=== PATIENT | female | born 1955 | race American Indian/Alaskan Native ===

== ENCOUNTER 2017-05-18 18:12 | Emergency (ER) | payer MEDICAID ==
[~2017-05-18] VITALS: Ht 5200 cm; Wt 103.3 kg
[~2017-05-18 18:12] MED LIST: ALD50T PO; ALPR-624 PO; ASPI-612 PO; BUPR150T6 PO; CHOL2000 PO; CHRO1TAB7 PO; LANTUS SQ; LISI2.5T49 PO; NORCO10T PO; OXCA300T39 PO; ROSU20TA PO; SOTA80TA69 PO; ZOL50T PO; ZOLP10TA5 PO
[2017-05-18 18:19] VITALS: BP 190/106
[2017-05-18] MEDS ORDERED: DOCU-28 PO (18:37)
[2017-05-18] MEDS ORDERED: ATOR40TA3 PO (18:38)
[2017-05-18] MEDS ORDERED: LANTUS SQ (18:41)
[2017-05-18 18:48] LABS: CLARITY,URINE CLEAR (Clear); COLOR,URINE YELLOW (Yellow); GLUCOSE, URINE NEGATIVE (Neg); KETONES,URINE TRACE mg/dl (Neg); LEUKOCYTE ESTERASE ,URINE NEGATIVE (Neg); NITRITES, URINE NEGATIVE (Neg); OCCULT BLOOD,URINE SMALL (Neg); PROTEIN,URINE 100 mg/dl (Neg); UROBILINOGEN,URINE 0.2 E.U/dL (0.2-1.0)
[2017-05-18 18:52] LABS: UA COLLECTION TYPE CLN CATCH MIDSTREAM
[2017-05-18 18:56] LABS: BACTERIA,URINE NONE SEEN /HPF (Neg); RBC,URINE 0-2 /HPF (0-2); SQUAMOUS EPITHELIAL CELL,UR FEW /LPF (FEW); WBC,URINE NONE SEEN /HPF (0-4)
[2017-05-18 19:10] LABS: BASOPHILS # (AUTO) 0.1 X10'3 (0-0.2); BASOPHILS % (AUTO) 0.6 % (0-1); EOSINOPHILS # (AUTO) 0.3 X10'3 (0-0.9); EOSINOPHILS % (AUTO) 2.8 % (0-6); HEMATOCRIT 41.9 % (35.0-45.0); HEMOGLOBIN 14.2 g/dl (12.0-16.0); LYMPHOCYTES % (AUTO) 22.1 % (21-51); MEAN CORPUSCULAR HEMOGLOBIN 28.5 PG (27.0-31.0); MEAN CORPUSCULAR HGB CONC 33.9 % (33.0-36.5); MEAN CORPUSCULAR VOLUME 83.8 FL (78-98); MEAN PLATELET VOLUME 9.5 FL (7.4-10.4); MONOCYTES # (AUTO) 0.7 X10'3 (0-0.9); MONOCYTES % (AUTO) 7.5 % (2-12); PLATELET COUNT 276 X10'3 (140-440); RED CELL DISTRIBUTION WIDTH 12.9 % (11.5-14.5); WHITE BLOOD COUNT 8.9 X10'3 (4.5-11.0)
[2017-05-18 19:25] LABS: ALANINE AMINOTRANSFERASE 33 U/L (12-78); ALBUMIN 3.8 G/DL (3.4-5.0); ALBUMIN/GLOBULIN RATIO 0.9 (1.1-1.5); ALKALINE PHOSPHATASE 77 IU/L (46-116); ANION GAP 13 (8-16); ASPARTATE AMINO TRANSFERASE 22 U/L (10-37); BILIRUBIN,TOTAL 0.6 MG/DL (0.1-1.0); BLOOD UREA NITROGEN 11 MG/DL (7-18); BUN/CREATININE RATIO 12.6 (6.6-38.0); CALCIUM 9.2 MG/DL (8.5-10.1); CHLORIDE 100 MMOL/L (99-107); CREATININE 0.87 MG/DL (0.40-0.90); GLUCOSE 157 MG/DL (70-104); POTASSIUM 3.7 MMOL/L (3.5-5.1); SODIUM 137 MMOL/L (135-145); TOTAL CARBON DIOXIDE 23.9 MMOL/L (24-32); TOTAL PROTEIN 8.1 G/DL (6.4-8.2); eGFR 66 ML/MIN
== END 2017-05-18 19:38 | disposition home or self-care (01) ==
LOC: ER 18:13
DX: F31.9 Bipolar disorder, unspecified (principal); F41.9 Anxiety disorder, unspecified; E11.9 Type 2 diabetes mellitus without complications; G89.29 Other chronic pain; I48.91 Unspecified atrial fibrillation; Z79.82 Long term (current) use of aspirin; Z79.4 Long term (current) use of insulin; Z79.899 Other long term (current) drug therapy
CPT/HCPCS: 36415; 80053; 81001; 82948; 85025; 99284

== ENCOUNTER 2019-01-03 20:48 | Emergency (ER) | payer MEDICAID ==
[~2019-01-03 20:48] MED LIST changes: +ATOR40TA7 PO; -CHRO1TAB7 PO; +DOCU-28 PO; -ROSU20TA PO; +ROSU20TA2 PO; -SOTA80TA69 PO; +SOTA80TA73 PO; -ZOL50T PO
--- NOTE | 2019-01-03 20:57 | NUR ---
PT WANTED BGL CHECKED DUE TO HER CONTINUOUS MONITOR READING LOW, PT BGL 116, PT REFUSING FURTHER ASSESSMENT AND TREATMENT. PT REFUSED TO BE SEEN BY MEDICAL PROVIDER. DOES NOT WISH TO PURSUE EMERGENCY MEDICAL CARE. PT INFORMED OF THE RISKS OF NOT BEEING SEEN BY A PROVIDER BUT CONTINUED TO REFUSE. PT WALKED OUT OF ED. ED MD AWARE OF PATIENT AND NO FURTHER CONTACT IS NECESSARY.
== END 2019-01-03 20:59 | disposition left against medical advice (07) ==
LOC: ER 20:49
DX: E16.2 Hypoglycemia, unspecified (principal); Z53.21 Procedure and treatment not carried out due to patient leaving prior to being seen by health care provider
CPT/HCPCS: 82948

== ENCOUNTER 2019-12-08 21:55 | Emergency (ER) | payer MEDICAID ==
[~2019-12-08] VITALS: Ht 157.5 cm; Wt 90.9 kg
[2019-12-08] MEDS ORDERED: cephalexin 500mg capsule PO ONE (23:10)
[2019-12-08] MEDS ORDERED: sulfamethoxazole/trimethoprim DS (800/160mg) tablet PO ONE (23:10)
[2019-12-08] MEDS ORDERED: LIDOcaine 1% W/epiNEPHrine 1:200,000 10ml vial IJ ONE (23:10)
[2019-12-08] MEDS ORDERED: CEPH500C5 PO (23:48)
[2019-12-08] MEDS ORDERED: SULF1TAB49 PO (23:48)
[2019-12-08 23:54] VITALS: BP 106/60
== END 2019-12-08 23:55 | disposition home or self-care (01) ==
LOC: ER 21:56
DX: L02.511 Cutaneous abscess of right hand (principal); M79.641 Pain in right hand; M79.89 Other specified soft tissue disorders; I48.91 Unspecified atrial fibrillation; E11.9 Type 2 diabetes mellitus without complications; G89.29 Other chronic pain; F41.9 Anxiety disorder, unspecified; F31.9 Bipolar disorder, unspecified; Z86.19 Personal history of other infectious and parasitic diseases; Z79.82 Long term (current) use of aspirin; Z79.4 Long term (current) use of insulin; Z79.2 Long term (current) use of antibiotics; Z79.899 Other long term (current) drug therapy
CPT/HCPCS: 10060; 99284

== ENCOUNTER 2019-12-11 12:31 | Emergency (ER) | payer MEDICAID ==
[~2019-12-11] VITALS: Ht 172.7 cm; Wt 110.0 kg
[~2019-12-11 12:31] MED LIST changes: +CEPH500C5 PO; -SOTA80TA73 PO; +SULF1TAB49 PO
[2019-12-11 12:35] VITALS: BP 195/117
== END 2019-12-11 13:14 | disposition left against medical advice (07) ==
LOC: ER 12:31
DX: L02.511 Cutaneous abscess of right hand (principal); Z53.21 Procedure and treatment not carried out due to patient leaving prior to being seen by health care provider

== ENCOUNTER 2019-12-11 14:20 | Emergency (ER) | payer MEDICAID ==
[~2019-12-11] VITALS: Ht 172.7 cm; Wt 100.0 kg
[~2019-12-11 14:20] MED LIST changes: +LIDOcaine 1% 30ml preserv. free vial ONE
[2019-12-11 14:26] VITALS: BP 183/103
--- NOTE | 2019-12-11 15:16 | NUR ---
pt seen and dc'd by provider
== END 2019-12-11 15:15 | disposition home or self-care (01) ==
LOC: ER 14:20
DX: L02.512 Cutaneous abscess of left hand (principal); I48.91 Unspecified atrial fibrillation; G89.29 Other chronic pain; E11.9 Type 2 diabetes mellitus without complications; F41.9 Anxiety disorder, unspecified; F31.9 Bipolar disorder, unspecified; G47.30 Sleep apnea, unspecified; Z86.19 Personal history of other infectious and parasitic diseases; Z79.82 Long term (current) use of aspirin; Z79.4 Long term (current) use of insulin; Z79.899 Other long term (current) drug therapy
CPT/HCPCS: 10060; 99282; J2001

== ENCOUNTER 2020-05-26 12:51 | Emergency (ER) | payer MEDICAID ==
[~2020-05-26] VITALS: Ht 157.5 cm; Wt 86.4 kg
[~2020-05-26 12:51] MED LIST changes: +BUPR150T22 PO; -BUPR150T6 PO; -CEPH500C5 PO; -LIDOcaine 1% 30ml preserv. free vial ONE; -SULF1TAB49 PO
[2020-05-26 13:05] VITALS: BP 123/72
[2020-05-26] MEDS ORDERED: mupirocin 2% ointment 22GM TP ONE (13:15)
== END 2020-05-26 13:46 | disposition home or self-care (01) ==
LOC: ER 12:52
DX: S51.802A Unspecified open wound of left forearm, initial encounter (principal); S51.801A Unspecified open wound of right forearm, initial encounter; L98.9 Disorder of the skin and subcutaneous tissue, unspecified; G47.30 Sleep apnea, unspecified; E11.9 Type 2 diabetes mellitus without complications; G89.29 Other chronic pain; F41.9 Anxiety disorder, unspecified; F31.9 Bipolar disorder, unspecified; I48.91 Unspecified atrial fibrillation; Z86.19 Personal history of other infectious and parasitic diseases; Z79.82 Long term (current) use of aspirin; Z79.4 Long term (current) use of insulin; Z79.899 Other long term (current) drug therapy; X58.XXXA Exposure to other specified factors, initial encounter; Y93.89 Activity, other specified; Y92.89 Other specified places as the place of occurrence of the external cause; Y99.8 Other external cause status
CPT/HCPCS: 99283

== ENCOUNTER 2020-09-15 16:12 | Inpatient (IN) | payer MEDICAID ==
[~2020-09-15] VITALS: Ht 160 cm; Wt 76.0 kg
--- NOTE | 2020-09-15 16:46 | NUR ---
PT TO ROOM, ASSUMED CARE.
[2020-09-15] MEDS ORDERED: normal saline 1000ML IV soln IVB ONE ×2 (16:50→18:25)
[2020-09-15 17:03] LABS: BASOPHILS % (AUTO) 0.4 % (0-1); EOSINOPHILS # (AUTO) 0.2 X10'3 (0-0.9); EOSINOPHILS % (AUTO) 1.5 % (0-6); HEMOGLOBIN 16.2 g/dl (12.0-16.0); LYMPHOCYTES # (AUTO) 2.7 X10'3 (1.1-4.8); LYMPHOCYTES % (AUTO) 26.4 % (21-51); MEAN CORPUSCULAR HEMOGLOBIN 28.4 PG (27.0-31.0); MEAN CORPUSCULAR HGB CONC 33.6 g/dL (33.0-36.5); MEAN CORPUSCULAR VOLUME 84.6 FL (78-98); MEAN PLATELET VOLUME 10.4 FL (7.4-10.4); MONOCYTES # (AUTO) 1.3 X10'3 (0-0.9); MONOCYTES % (AUTO) 12.3 % (2-12); NEUTROPHILS # (AUTO) 6.2 X10'3 (1.8-7.7); NEUTROPHILS % (AUTO) 59.4 % (42-75); PLATELET COUNT 347 X10'3 (140-440); RED BLOOD COUNT 5.68 X10'6 (4.20-5.60); RED CELL DISTRIBUTION WIDTH 12.7 % (11.5-14.5); WHITE BLOOD COUNT 10.4 X10'3 (4.5-11.0)
[2020-09-15 17:19] LABS: ALANINE AMINOTRANSFERASE 22 U/L (12-78); ALBUMIN 3.5 G/DL (3.4-5.0); ALBUMIN/GLOBULIN RATIO 0.7 (1.1-1.5); ALKALINE PHOSPHATASE 106 IU/L (46-116); ANION GAP 12 (8-16); ASPARTATE AMINO TRANSFERASE 20 U/L (10-37); BILIRUBIN,TOTAL 0.5 MG/DL (0.1-1.0); BLOOD UREA NITROGEN 36 MG/DL (7-18); BUN/CREATININE RATIO 24.3 (6.6-38.0); CALCIUM 10.4 MG/DL (8.5-10.1); CHLORIDE 88 MMOL/L (99-107); CREATININE 1.48 MG/DL (0.40-0.90); POTASSIUM 4.6 MMOL/L (3.5-5.1); SODIUM 124 MMOL/L (135-145); TOTAL CARBON DIOXIDE 23.8 MMOL/L (24-32); TOTAL PROTEIN 8.5 G/DL (6.4-8.2); eGFR 36 ML/MIN
--- NOTE | 2020-09-15 17:22 | NUR ---
placed pt on monitoring coordinator.
[2020-09-15 17:23] LABS: GLUCOSE 698 MG/DL (70-104)
[2020-09-15 18:01] LABS: ABG OXYGEN SATURATION 95.1 % (94-97); ABG PCO2 (T) 37.1 mmHg (32.0-45.0); ABG PO2 (T) 70.8 mmHg (75.0-100.0); ALLEN'S TEST POSITIVE; FCOHb 0.8 % (0.0-3.9); FMetHb 0.2 % (0.0-1.5); FO2Hb 94.1 % (94-97); PATIENT TEMPERATURE 35.8; TOTAL HEMOGLOBIN 14.9 G/dl (12.0-16.0)
[2020-09-15] MEDS ORDERED: insulin regular, human 10 units/0.1 ml syringe SQ ONE (18:50)
--- NOTE | 2020-09-15 20:23 | NUR ---
BLOOD SUGAR RECHECKED, 469
[2020-09-15 21:17] LABS: CLARITY,URINE CLEAR (Clear); COLOR,URINE YELLOW (Yellow); GLUCOSE, URINE >=1000 mg/dl (Neg); KETONES,URINE NEGATIVE (Neg); LEUKOCYTE ESTERASE ,URINE NEGATIVE (Neg); NITRITES, URINE NEGATIVE (Neg); OCCULT BLOOD,URINE NEGATIVE (Neg); PH,URINE 5.5 (4.8-8.0); PROTEIN,URINE NEGATIVE (Neg); UROBILINOGEN,URINE 0.2 E.U/dL (0.2-1.0)
[2020-09-15 21:18] LABS: UA COLLECTION TYPE CLN CATCH MIDSTREAM
[2020-09-15 21:33] LABS: BACTERIA,URINE NONE SEEN /HPF (Neg); MUCUS STRANDS NONE SEEN /LPF (Neg); RBC,URINE 0-2 /HPF (0-2); SQUAMOUS EPITHELIAL CELL,UR FEW /LPF (FEW); WBC,URINE 0-4 /HPF (0-4)
[2020-09-15] MEDS ORDERED: potassium Cl 20 mEq SR tablet PO PRN ×2 (23:55)
[2020-09-15] MEDS ORDERED: dextrose 50%-water 50ml dispensing syringe IV PRN ×2 (23:55)
[2020-09-15] MEDS ORDERED: morphine 2 MG/ML inj. syringe IV PRN (23:55)
[2020-09-15] MEDS ORDERED: glucagon, human recombinant 1mg kit SUBCUT PRN (23:55)
[2020-09-15] MEDS ORDERED: acetaminophen 325mg tablet PO PRN ×2 (23:55)
[2020-09-15] MEDS ORDERED: ondansetron/PF 4mg/2ml inj IV PRN (23:55)
[2020-09-15] MEDS ORDERED: magnesium 2GM in 50ml NS 50 ML IV PRN (23:55)
[2020-09-15] MEDS ORDERED: MESSAGE TO PHARMACY PO ONE (23:55)
[2020-09-15] MEDS ORDERED: magnesium 4gm in 100ml NS 100 ML IV PRN (23:55)
[2020-09-15] MEDS ORDERED: magnesium Cl slow-release 64mg tablet PO PRN (23:55)
[2020-09-15] MEDS ORDERED: mag hydrox/Alum hydrox/simeth 30ml oral suspension PO PRN (23:55)
[2020-09-15] MEDS ORDERED: dextrose ORAL solution 15 GM/59 ML bottle PO PRN ×2 (23:55)
[2020-09-15] MEDS ORDERED: magnesium hydroxide 30ml (MOM) UD suspension PO PRN (23:55)
[2020-09-15] MEDS ORDERED: potassium Cl 40MEQ/1/2NS 520ml 520 ML IV PRN ×2 (23:55)
[2020-09-16] MEDS: normal saline 1000ml 1,000 ML IV SCH ×3 (00:13→21:47)
[2020-09-16] MEDS ORDERED: SOTA80TA73 PO (00:49)
[2020-09-16] MEDS ORDERED: DULA0.75 SQ (00:49)
[2020-09-16] MEDS ORDERED: non-formulary drug (Rosuvastatin Calcium* (Crestor*) 1 TAB) PO SCH (08:00)
[2020-09-16] MEDS: K and/or MAG REPLACEMENT MC SCH ×2 (08:00→20:00)
[2020-09-16] MEDS ORDERED: buPROPion SR 150mg tablet PO SCH ×2 (08:00→21:00)
[2020-09-16 08:14] LABS: BASOPHILS # (AUTO) 0.1 X10'3 (0-0.2); BASOPHILS % (AUTO) 0.6 % (0-1); EOSINOPHILS # (AUTO) 0.3 X10'3 (0-0.9); EOSINOPHILS % (AUTO) 3.2 % (0-6); HEMATOCRIT 41.2 % (35.0-45.0); HEMOGLOBIN 14.2 g/dl (12.0-16.0); LYMPHOCYTES # (AUTO) 3.1 X10'3 (1.1-4.8); LYMPHOCYTES % (AUTO) 37.6 % (21-51); MEAN CORPUSCULAR HEMOGLOBIN 28.8 PG (27.0-31.0); MEAN CORPUSCULAR HGB CONC 34.4 g/dL (33.0-36.5); MEAN CORPUSCULAR VOLUME 83.6 FL (78-98); MEAN PLATELET VOLUME 10.1 FL (7.4-10.4); MONOCYTES # (AUTO) 0.8 X10'3 (0-0.9); MONOCYTES % (AUTO) 10.2 % (2-12); NEUTROPHILS % (AUTO) 48.4 % (42-75); PLATELET COUNT 282 X10'3 (140-440); RED BLOOD COUNT 4.93 X10'6 (4.20-5.60); RED CELL DISTRIBUTION WIDTH 12.7 % (11.5-14.5); WHITE BLOOD COUNT 8.3 X10'3 (4.5-11.0)
[2020-09-16 08:34] LABS: ALANINE AMINOTRANSFERASE 24 U/L (12-78); ALBUMIN 2.8 G/DL (3.4-5.0); ALBUMIN/GLOBULIN RATIO 0.7 (1.1-1.5); ALKALINE PHOSPHATASE 78 IU/L (46-116); ANION GAP 8 (8-16); ASPARTATE AMINO TRANSFERASE 16 U/L (10-37); BILIRUBIN,TOTAL 0.4 MG/DL (0.1-1.0); BLOOD UREA NITROGEN 25 MG/DL (7-18); BUN/CREATININE RATIO 26.6 (6.6-38.0); CALCIUM 8.8 MG/DL (8.5-10.1); CHLORIDE 103 MMOL/L (99-107); CREATININE 0.94 MG/DL (0.40-0.90); GLUCOSE 211 MG/DL (70-104); MAGNESIUM 1.6 MG/DL (1.5-2.4); POTASSIUM 3.6 MMOL/L (3.5-5.1); SODIUM 138 MMOL/L (135-145); TOTAL CARBON DIOXIDE 26.7 MMOL/L (24-32); TOTAL PROTEIN 6.9 G/DL (6.4-8.2); eGFR 60 ML/MIN
[2020-09-16] MEDS: heparin, porcine 5000 units/ml vial SQ SCH ×2 (08:40→22:01)
[2020-09-16] MEDS: lisinopril 2.5mg tablet PO SCH (08:41)
[2020-09-16] MEDS: oxcarbazepine 150mg tablet PO SCH ×2 (08:41→22:03)
[2020-09-16] MEDS: atorvastatin 20mg tablet PO SCH (08:41)
[2020-09-16] MEDS: sotalol 80mg tablet PO SCH ×2 (08:41→22:20)
[2020-09-16] MEDS: aspirin 81mg tablet.DR PO SCH (08:41)
[2020-09-16] MEDS: spironolactone 50 MG tablet PO SCH ×2 (08:41→22:03)
[2020-09-16] MEDS ORDERED: nitroGLYCERIN 0.4mg SUBLingual tab SL PRN (13:35)
[2020-09-16] MEDS ORDERED: regadenoson 0.4mg/5ml syringe IV ONE (13:35)
[2020-09-16] MEDS ORDERED: metoprolol tartrate 1mg/ml inj IV PRN (13:35)
[2020-09-16] MEDS ORDERED: aminophylline 250mg/10ml inj. IV PRN (13:35)
[2020-09-16] MEDS: insulin Lispro (HumaLOG) vial - multi-dose SQ SCH ×2 (14:34→22:11)
[2020-09-16] MEDS ORDERED: ondansetron 4mg rapidly disintigrating tab PO PRN (14:35)
--- NOTE | 2020-09-16 20:55 | NUR ---
Patient in room ED 2. I have received report from Medical Voucher Clerk and had the opportunity to ask questions and will assume patient care upon arrival to room [facility]. Addendum: 09/16/20 at 2054 by Josseline Merida RN Amended: Links added.
[2020-09-16] MEDS ORDERED: buproprion 150mg XL (24-hour) tablet PO SCH (21:00)
[2020-09-16] MEDS: temazepam 15mg capsule PO PRN (21:59)
[2020-09-16 22:00] VITALS: BP 107/69
[2020-09-16] MEDS: ALPRAZolam 0.5mg tablet PO PRN (22:00)
[2020-09-16] MEDS: insulin glargine (Lantus) pen - multi-dose SQ SCH (22:10)
[2020-09-17] VITALS (10 sets, daily range): BP systolic 104–123; BP diastolic 38–64
[2020-09-17] MEDS: temazepam 15mg capsule PO PRN (00:37)
--- NOTE | 2020-09-17 01:00 | NUR ---
TOOK SECOND SLEEPER THEN WENT TO PHARMACY TO [employer] [facility] PT[facility].
[2020-09-17] MEDS: BUPROPRION 150 MG PO SCH ×2 (01:46→20:31)
[2020-09-17 02:49] LABS: HEMOGLOBIN A1C 12.5 % (4.5-6.2)
--- NOTE | 2020-09-17 03:28 | NUR ---
PT RESTING WITHOUT CHANGES.
--- NOTE | 2020-09-17 05:03 | NUR ---
PT RESTING EYES CLOSED WITHOUT CHANGES AT THIS TIME.
[2020-09-17] MEDS ORDERED: aminophylline 250mg/10ml inj. IV PRN (06:00)
[2020-09-17] MEDS ORDERED: metoprolol tartrate 1mg/ml inj IV PRN (06:00)
[2020-09-17] MEDS ORDERED: regadenoson 0.4mg/5ml syringe IV ONE (06:00)
--- NOTE | 2020-09-17 06:41 | NUR ---
Problems reprioritized. Patient report given, questions answered & plan of care reviewed with JOSEFINA EUBANKS. Addendum: 09/17/20 at 0642 by Josseline Merida RN Amended: Links added.
--- NOTE | 2020-09-17 06:53 | NUR ---
Patient in room ORTHO 4011B. I have received report from RAIMUNDO NEGRETE and had the opportunity to ask questions and assume patient care.
[2020-09-17] MEDS: K and/or MAG REPLACEMENT MC SCH ×2 (08:00→20:00)
[2020-09-17 08:02] LABS: BASOPHILS # (AUTO) 0.1 X10'3 (0-0.2); EOSINOPHILS # (AUTO) 0.2 X10'3 (0-0.9); EOSINOPHILS % (AUTO) 2.8 % (0-6); HEMATOCRIT 40.6 % (35.0-45.0); HEMOGLOBIN 13.6 g/dl (12.0-16.0); LYMPHOCYTES # (AUTO) 2.5 X10'3 (1.1-4.8); LYMPHOCYTES % (AUTO) 40.4 % (21-51); MEAN CORPUSCULAR HEMOGLOBIN 28.3 PG (27.0-31.0); MEAN CORPUSCULAR HGB CONC 33.4 g/dL (33.0-36.5); MEAN CORPUSCULAR VOLUME 84.6 FL (78-98); MEAN PLATELET VOLUME 10.2 FL (7.4-10.4); MONOCYTES # (AUTO) 0.6 X10'3 (0-0.9); MONOCYTES % (AUTO) 9.6 % (2-12); NEUTROPHILS # (AUTO) 2.8 X10'3 (1.8-7.7); NEUTROPHILS % (AUTO) 46.2 % (42-75); PLATELET COUNT 221 X10'3 (140-440); RED BLOOD COUNT 4.79 X10'6 (4.20-5.60); RED CELL DISTRIBUTION WIDTH 12.7 % (11.5-14.5); WHITE BLOOD COUNT 6.1 X10'3 (4.5-11.0)
[2020-09-17] MEDS: lisinopril 2.5mg tablet PO SCH (08:12)
[2020-09-17] MEDS: aspirin 81mg tablet.DR PO SCH (08:13)
[2020-09-17] MEDS: atorvastatin 20mg tablet PO SCH (08:13)
[2020-09-17] MEDS: oxcarbazepine 150mg tablet PO SCH ×2 (08:14→20:30)
[2020-09-17] MEDS: sotalol 80mg tablet PO SCH ×2 (08:15→20:31)
[2020-09-17] MEDS: spironolactone 50 MG tablet PO SCH ×2 (08:15→20:31)
[2020-09-17] MEDS: heparin, porcine 5000 units/ml vial SQ SCH ×2 (08:15→20:32)
[2020-09-17 08:18] LABS: ALANINE AMINOTRANSFERASE 25 U/L (12-78); ALBUMIN 2.5 G/DL (3.4-5.0); ALBUMIN/GLOBULIN RATIO 0.7 (1.1-1.5); ALKALINE PHOSPHATASE 71 IU/L (46-116); ANION GAP 9 (8-16); ASPARTATE AMINO TRANSFERASE 19 U/L (10-37); BILIRUBIN,TOTAL 0.3 MG/DL (0.1-1.0); BLOOD UREA NITROGEN 23 MG/DL (7-18); BUN/CREATININE RATIO 22.1 (6.6-38.0); CALCIUM 8.3 MG/DL (8.5-10.1); CHLORIDE 106 MMOL/L (99-107); CREATININE 1.04 MG/DL (0.40-0.90); GLUCOSE 293 MG/DL (70-104); MAGNESIUM 1.6 MG/DL (1.5-2.4); POTASSIUM 3.7 MMOL/L (3.5-5.1); SODIUM 138 MMOL/L (135-145); TOTAL CARBON DIOXIDE 23.3 MMOL/L (24-32); TOTAL PROTEIN 6.3 G/DL (6.4-8.2); eGFR 53 ML/MIN
[2020-09-17] MEDS: insulin Lispro (HumaLOG) vial - multi-dose SQ SCH ×3 (08:23→19:08)
[2020-09-17] MEDS: ALPRAZolam 0.5mg tablet PO PRN ×2 (08:29→21:50)
[2020-09-17] MEDS: HYDROcodone/acetaminophen 5mg/325mg tablet PO PRN ×2 (08:30→21:51)
[2020-09-17] MEDS: normal saline 1000ml 1,000 ML IV SCH ×3 (09:48→22:57)
--- NOTE | 2020-09-17 12:20 | NUR ---
DM/Malnutrition Consults "pt DM meth user, needs teaching": Pt admit DX hyperosmolar hyperglycemia GLU 698, hyponatremia r/t elevated GLU, afib, and bipolar d/o per EMR. Hx DM A1C 12.5 this admit; home Rx Lantus 50 units HS and weekly Trulicity and goes to [facility] for primary care per EMR. No tox screen done this admit though pt does admit to last meth use [address] RD attempted to visit pt though pt not in room; written DM ed w/ RD contact information left at bedside. Pt would benefit from f/u DM ed review this admit. Pt has normal strength, no edema/wounds, appears WD/WN per ER note, and unsure of wt loss per RN Malnutrition screen. PO meals pending as pt NPO this AM. At this time pt lacks minimum two malnutrition criteria. LBM 09/14. Will monitor for PO trends, ONS needs, and further DM ed needs this admit. Rec: 1. continue carb controlled diet 2. monitor for ONS needs pending PO hx 3. routine bowel care 4. weekly wts 5. DM ed reinforcement this admit Addendum: 09/17/20 at [address] Amended: Links added.
--- NOTE | 2020-09-17 18:50 | NUR ---
Problems reprioritized. Patient report given, questions answered & plan of care reviewed with CARLOS GONZALEZ RN.
--- NOTE | 2020-09-17 18:51 | NUR ---
Patient in room ORTHO 4011. I have received report from JOSEFINA EUBANKS and had the opportunity to ask questions and assume patient care.
[2020-09-17] MEDS: insulin glargine (Lantus) pen - multi-dose SQ SCH (21:56)
[2020-09-18] VITALS: BP 137/66
[2020-09-18 06:00] VITALS: BP 137/70
--- NOTE | 2020-09-18 06:08 | NUR ---
Problems reprioritized. Patient report given, questions answered & plan of care reviewed with MARY BETH EUBANKS.
[2020-09-18 06:45] LABS: BASOPHILS % (AUTO) 0.6 % (0-1); EOSINOPHILS # (AUTO) 0.2 X10'3 (0-0.9); EOSINOPHILS % (AUTO) 4.1 % (0-6); HEMATOCRIT 40.6 % (35.0-45.0); HEMOGLOBIN 13.7 g/dl (12.0-16.0); LYMPHOCYTES # (AUTO) 2.2 X10'3 (1.1-4.8); LYMPHOCYTES % (AUTO) 39.5 % (21-51); MEAN CORPUSCULAR HEMOGLOBIN 28.6 PG (27.0-31.0); MEAN CORPUSCULAR HGB CONC 33.8 g/dL (33.0-36.5); MEAN CORPUSCULAR VOLUME 84.7 FL (78-98); MEAN PLATELET VOLUME 10.2 FL (7.4-10.4); MONOCYTES # (AUTO) 0.6 X10'3 (0-0.9); MONOCYTES % (AUTO) 11.7 % (2-12); NEUTROPHILS # (AUTO) 2.4 X10'3 (1.8-7.7); NEUTROPHILS % (AUTO) 44.1 % (42-75); PLATELET COUNT 204 X10'3 (140-440); RED BLOOD COUNT 4.79 X10'6 (4.20-5.60); RED CELL DISTRIBUTION WIDTH 12.8 % (11.5-14.5); WHITE BLOOD COUNT 5.5 X10'3 (4.5-11.0)
[2020-09-18] MEDS: heparin, porcine 5000 units/ml vial SQ SCH (07:10)
[2020-09-18] MEDS: atorvastatin 20mg tablet PO SCH (07:11)
[2020-09-18] MEDS: lisinopril 2.5mg tablet PO SCH (07:11)
[2020-09-18] MEDS: aspirin 81mg tablet.DR PO SCH (07:11)
[2020-09-18] MEDS: spironolactone 50 MG tablet PO SCH (07:11)
[2020-09-18] MEDS: sotalol 80mg tablet PO SCH (07:12)
[2020-09-18] MEDS: oxcarbazepine 150mg tablet PO SCH (07:12)
[2020-09-18] MEDS: K and/or MAG REPLACEMENT MC SCH (07:16)
[2020-09-18 08:05] LABS: ALANINE AMINOTRANSFERASE 26 U/L (12-78); ALBUMIN 2.7 G/DL (3.4-5.0); ALBUMIN/GLOBULIN RATIO 0.7 (1.1-1.5); ALKALINE PHOSPHATASE 69 IU/L (46-116); ANION GAP 12 (8-16); ASPARTATE AMINO TRANSFERASE 19 U/L (10-37); BILIRUBIN,TOTAL 0.3 MG/DL (0.1-1.0); BLOOD UREA NITROGEN 13 MG/DL (7-18); BUN/CREATININE RATIO 16.3 (6.6-38.0); CALCIUM 8.5 MG/DL (8.5-10.1); CHLORIDE 109 MMOL/L (99-107); GLUCOSE 216 MG/DL (70-104); MAGNESIUM 1.5 MG/DL (1.5-2.4); POTASSIUM 3.8 MMOL/L (3.5-5.1); SODIUM 143 MMOL/L (135-145); TOTAL CARBON DIOXIDE 21.6 MMOL/L (24-32); TOTAL PROTEIN 6.6 G/DL (6.4-8.2); eGFR 72 ML/MIN
[2020-09-18] MEDS: insulin Lispro (HumaLOG) vial - multi-dose SQ SCH ×2 (09:24→13:15)
[2020-09-18 10:00] VITALS: BP 139/75
[2020-09-18] MEDS ORDERED: iohexol 350MG/ML 100ml bottle IV ONE (10:40)
--- NOTE | 2020-09-18 11:46 | NUR ---
F/u 09/18: RD attempted to visit pt at bedside for DM f/u ed review but pt not present. Will attempt further visits for DM ed review this admit. Addendum: 09/18/20 at [address] Amended: Links added.
[2020-09-18] MEDS: normal saline 1000ml 1,000 ML IV SCH (12:02)
--- NOTE | 2020-09-18 13:53 | NUR ---
DISCHARGE TEACHING DONE. COPY OF SIGNED TEACHING IN CHART. IV AND TELE DISCONTINUED. ALL BELONGINGS WITH PT. PT TAKEN DOWN TO LOBBY BY WHEELCHAIR BY PRIVATE VEHICLE.
== END 2020-09-18 11:35 | disposition home health service (06) | DRG 420 ==
LOC: ER 16:12 → OBSVTOIN 23:55 → ED HOLD 23:55 → ORTHO 4S 09-16 21:10
PROVIDERS: ADMIT Internal Medicine; ATTEND Family Medicine
PROC: 4A02XM4 Measurement of Cardiac Total Activity, External Approach (ICD-10-PCS; principal; 2020-09-17)
PROC: 3E073KZ Introduction of Other Diagnostic Substance into Coronary Artery, Percutaneous Approach (ICD-10-PCS; 2020-09-17)
PROC: B32T1ZZ Computerized Tomography (CT Scan) of Left Pulmonary Artery using Low Osmolar Contrast (ICD-10-PCS; 2020-09-18)
PROC: B3201ZZ Computerized Tomography (CT Scan) of Thoracic Aorta using Low Osmolar Contrast (ICD-10-PCS; 2020-09-18)
PROC: B32S1ZZ Computerized Tomography (CT Scan) of Right Pulmonary Artery using Low Osmolar Contrast (ICD-10-PCS; 2020-09-18)
DX: E11.65 Type 2 diabetes mellitus with hyperglycemia (principal); I21.A1 Myocardial infarction type 2; E11.22 Type 2 diabetes mellitus with diabetic chronic kidney disease; E87.1 Hypo-osmolality and hyponatremia; E86.0 Dehydration; B19.20 Unspecified viral hepatitis C without hepatic coma; I48.0 Paroxysmal atrial fibrillation; E66.9 Obesity, unspecified; E78.5 Hyperlipidemia, unspecified; G47.33 Obstructive sleep apnea (adult) (pediatric); G89.29 Other chronic pain; F15.10 Other stimulant abuse, uncomplicated; F31.9 Bipolar disorder, unspecified; F41.9 Anxiety disorder, unspecified; I12.9 Hypertensive chronic kidney disease with stage 1 through stage 4 chronic kidney disease, or unspecified chronic kidney disease; I25.10 Atherosclerotic heart disease of native coronary artery without angina pectoris; N18.9 Chronic kidney disease, unspecified; Z80.1 Family history of malignant neoplasm of trachea, bronchus and lung; Z87.891 Personal history of nicotine dependence; Z68.29 Body mass index [BMI] 29.0-29.9, adult; Z79.899 Other long term (current) drug therapy; Z79.82 Long term (current) use of aspirin; Z98.891 History of uterine scar from previous surgery; Z98.51 Tubal ligation status; Z71.51 Drug abuse counseling and surveillance of drug abuser; Z91.14 Patient's other noncompliance with medication regimen
CPT/HCPCS: 36415; 36600; 71045; 71275; 78452; 80053; 81001; 82803; 82948; 83036; 83735; 83880; 83930; 84484; 85018; 85025; 87081; 93005; 93017; 93306; 96360; 96361; 96372; 97116; 97161; 97530; 99285; A9500; G0378; J1644; J1815; J2785; J7030; Q9967

== ENCOUNTER 2021-05-05 16:56 | Inpatient (IN) | payer MEDICARE, MEDICAID ==
[~2021-05-05] VITALS: Ht 157.5 cm; Wt 78.2 kg
[~2021-05-05 16:56] MED LIST changes: +DULA0.75 SQ; -ROSU20TA2 PO; +SOTA80TA73 PO
[2021-05-05 18:01] LABS: BASOPHILS % (AUTO) 0.2 % (0-1); EOSINOPHILS % (AUTO) 0.3 % (0-6); HEMATOCRIT 42.1 % (35.0-45.0); HEMOGLOBIN 14.1 g/dl (12.0-16.0); LYMPHOCYTES # (AUTO) 1.1 X10'3 (1.1-4.8); MEAN CORPUSCULAR HEMOGLOBIN 28.3 PG (27.0-31.0); MEAN CORPUSCULAR HGB CONC 33.5 g/dL (33.0-36.5); MEAN CORPUSCULAR VOLUME 84.5 FL (78-98); MONOCYTES # (AUTO) 1.2 X10'3 (0-0.9); NEUTROPHILS # (AUTO) 9.5 X10'3 (1.8-7.7); NEUTROPHILS % (AUTO) 80.5 % (42-75); PLATELET COUNT 256 X10'3 (140-440); RED BLOOD COUNT 4.98 X10'6 (4.20-5.60); RED CELL DISTRIBUTION WIDTH 13.4 % (11.5-14.5); WHITE BLOOD COUNT 11.8 X10'3 (4.5-11.0)
[2021-05-05 18:20] LABS: ALANINE AMINOTRANSFERASE 25 U/L (12-78); ALBUMIN 2.9 G/DL (3.4-5.0); ALBUMIN/GLOBULIN RATIO 0.6 (1.1-1.5); ALKALINE PHOSPHATASE 79 IU/L (46-116); ANION GAP 6 (8-16); ASPARTATE AMINO TRANSFERASE 16 U/L (10-37); BILIRUBIN,TOTAL 0.3 MG/DL (0.1-1.0); BLOOD UREA NITROGEN 23 MG/DL (7-18); BUN/CREATININE RATIO 23.5 (6.6-38.0); CALCIUM 8.6 MG/DL (8.5-10.1); CHLORIDE 99 MMOL/L (99-107); CREATININE 0.98 MG/DL (0.40-0.90); POTASSIUM 4.1 MMOL/L (3.5-5.1); SODIUM 131 MMOL/L (135-145); TOTAL CARBON DIOXIDE 26.2 MMOL/L (24-32); TOTAL PROTEIN 7.7 G/DL (6.4-8.2); eGFR 57 ML/MIN
[2021-05-05 18:27] LABS: GLUCOSE 453 MG/DL (70-104)
[2021-05-05] MEDS ORDERED: heparin 25,000 UNIT/250ml bag 250 ML IV SCH (18:45)
[2021-05-05] MEDS ORDERED: heparin 10,000 units/1 ML INJ IV ONE (18:45)
[2021-05-05 19:02] LABS: ETHANOL < 0.010 GM/DL (0.0-0.010)
[2021-05-05 19:05] LABS: APTT 28 SECONDS (22-32); D-DIMER 0.84 MG/L FEU (0-0.50)
[2021-05-05 19:12] LABS: URINE AMPHETAMINE SCREEN POSITIVE (Neg); URINE BARBITUATE SCREEN NEGATIVE (Neg); URINE BENZODIAZEPINES SCREEN NEGATIVE (Neg); URINE CANNABINOID SCREEN NEGATIVE (Neg); URINE COCAINE SCREEN NEGATIVE (Neg); URINE METHADONE SCREEN NEGATIVE (Neg); URINE OPIATE SCREEN NEGATIVE (Neg); URINE PHENCYCLIDINE SCREEN NEGATIVE (Neg)
[2021-05-05] MEDS ORDERED: iohexol 350MG/ML 100ml bottle IV ONE (19:19)
[2021-05-05 19:21] LABS: CLARITY,URINE CLEAR (Clear); COLOR,URINE YELLOW (Yellow); GLUCOSE, URINE >=1000 mg/dl (Neg); KETONES,URINE NEGATIVE (Neg); LEUKOCYTE ESTERASE ,URINE NEGATIVE (Neg); NITRITES, URINE NEGATIVE (Neg); OCCULT BLOOD,URINE SMALL (Neg); PH,URINE 5.5 (4.8-8.0); PROTEIN,URINE 30 mg/dl (Neg); UROBILINOGEN,URINE 0.2 E.U/dL (0.2-1.0)
[2021-05-05 19:24] LABS: UA COLLECTION TYPE VOIDED
[2021-05-05 19:28] LABS: SQUAMOUS EPITHELIAL CELL,UR FEW /LPF (FEW)
[2021-05-05 19:30] LABS: BACTERIA,URINE FEW /HPF (Neg); RBC,URINE 0-2 /HPF (0-2); WBC,URINE 0-4 /HPF (0-4)
[2021-05-05] MEDS ORDERED: REMDESIVIR INJ 200 MG in normal saline 100ml IV soln 100 ML IV ONE (20:15)
[2021-05-05] MEDS ORDERED: temazepam 15mg capsule PO PRN (21:00)
[2021-05-05] MEDS ORDERED: mag hydrox/Alum hydrox/simeth 30ml oral suspension PO PRN (21:10)
[2021-05-05] MEDS ORDERED: acetaminophen 650mg rectal suppository RC PRN (21:10)
[2021-05-05] MEDS ORDERED: ondansetron/PF 4mg/2ml inj IV PRN (21:10)
[2021-05-05] MEDS ORDERED: ondansetron 4mg rapidly disintigrating tab PO PRN (21:10)
[2021-05-05] MEDS ORDERED: diphenhydrAMINE 50 mg/ml inj IV PRN (21:10)
[2021-05-05] MEDS ORDERED: magnesium hydroxide 30ml (MOM) UD suspension PO PRN (21:10)
[2021-05-05] MEDS ORDERED: morphine 2 MG/ML inj. syringe IV PRN ×2 (21:10)
[2021-05-05] MEDS ORDERED: diphenhydrAMINE 25mg capsule PO PRN (21:10)
[2021-05-05] MEDS ORDERED: HYDROcodone/acetaminophen 5mg/325mg tablet PO PRN (21:10)
[2021-05-05] MEDS ORDERED: bisacodyl 10mg suppository rectal RC PRN (21:10)
[2021-05-05] MEDS ORDERED: acetaminophen 325mg tablet PO PRN ×2 (21:10)
[2021-05-05] MEDS ORDERED: glucagon, human recombinant 1mg kit SUBCUT PRN (21:15)
[2021-05-05] MEDS ORDERED: dextrose ORAL solution 15 GM/59 ML bottle PO PRN ×2 (21:15)
[2021-05-05] MEDS ORDERED: MESSAGE TO PHARMACY PO ONE (21:15)
[2021-05-05] MEDS ORDERED: dextrose 50%-water 50ml dispensing syringe IV PRN ×2 (21:15)
[2021-05-05] MEDS: normal saline 1000ml 1,000 ML IV SCH (21:23)
[2021-05-05 21:36] LABS: HEMOGLOBIN A1C 10.3 % (4.5-6.2)
[2021-05-05 21:56] LABS: CREATINE KINASE 80 U/L (26-192); LIPASE 267 U/L (73-393); MAGNESIUM 1.3 MG/DL (1.5-2.4); PHOSPHORUS 2.9 MG/DL (2.3-4.5)
[2021-05-05 22:01] LABS: CARBAMAZEPINE (TEGRETOL) < 0.5 UG/ML (4.0-12.0)
[2021-05-06 01:42] LABS: BASOPHILS % (AUTO) 0.2 % (0-1); EOSINOPHILS % (AUTO) 0.5 % (0-6); HEMATOCRIT 38.9 % (35.0-45.0); HEMOGLOBIN 13.4 g/dl (12.0-16.0); LYMPHOCYTES # (AUTO) 1.8 X10'3 (1.1-4.8); LYMPHOCYTES % (AUTO) 23.2 % (21-51); MEAN CORPUSCULAR HEMOGLOBIN 28.9 PG (27.0-31.0); MEAN CORPUSCULAR HGB CONC 34.5 g/dL (33.0-36.5); MEAN CORPUSCULAR VOLUME 83.7 FL (78-98); MEAN PLATELET VOLUME 9.7 FL (7.4-10.4); MONOCYTES # (AUTO) 0.8 X10'3 (0-0.9); MONOCYTES % (AUTO) 10.7 % (2-12); NEUTROPHILS % (AUTO) 65.4 % (42-75); PLATELET COUNT 204 X10'3 (140-440); RED BLOOD COUNT 4.65 X10'6 (4.20-5.60); RED CELL DISTRIBUTION WIDTH 13.5 % (11.5-14.5); WHITE BLOOD COUNT 7.6 X10'3 (4.5-11.0)
[2021-05-06] MEDS: LORazepam 1 MG tablet PO SCH ×4 (02:00→20:10)
[2021-05-06 02:24] LABS: ALANINE AMINOTRANSFERASE 21 U/L (12-78); ALBUMIN 2.6 G/DL (3.4-5.0); ALBUMIN/GLOBULIN RATIO 0.6 (1.1-1.5); ALKALINE PHOSPHATASE 70 IU/L (46-116); ANION GAP 6 (8-16); ASPARTATE AMINO TRANSFERASE 12 U/L (10-37); BILIRUBIN,TOTAL 0.2 MG/DL (0.1-1.0); BLOOD UREA NITROGEN 17 MG/DL (7-18); BUN/CREATININE RATIO 21.3 (6.6-38.0); CALCIUM 8.1 MG/DL (8.5-10.1); CHLORIDE 102 MMOL/L (99-107); CHOLESTEROL 142 MG/DL (0-200); GLUCOSE 310 MG/DL (70-104); HDL CHOLESTEROL 48 MG/DL (35-60); LDL CHOLESTEROL 73 MG/DL (50-100); POTASSIUM 3.4 MMOL/L (3.5-5.1); SODIUM 133 MMOL/L (135-145); TOTAL CARBON DIOXIDE 25.3 MMOL/L (24-32); TOTAL PROTEIN 6.8 G/DL (6.4-8.2); TRIGLYCERIDES 96 MG/DL (20-135); eGFR 72 ML/MIN
[2021-05-06] MEDS ORDERED: magnesium 4gm in 100ml NS 100 ML IV PRN (03:05)
[2021-05-06] MEDS ORDERED: magnesium 2GM in 50ml NS 50 ML IV PRN (03:05)
[2021-05-06] MEDS ORDERED: potassium Cl 20 mEq SR tablet PO PRN (03:05)
[2021-05-06] MEDS ORDERED: magnesium Cl slow-release 64mg tablet PO PRN (03:05)
[2021-05-06] MEDS: heparin 25,000 UNIT/250ml bag 250 ML IV SCH ×3 (04:05→20:30)
[2021-05-06 05:57] LABS: MAGNESIUM 1.3 MG/DL (1.5-2.4); POTASSIUM 3.4 MMOL/L (3.5-5.1)
[2021-05-06] MEDS ORDERED: zolpidem 5mg tablet PO PRN (06:35)
[2021-05-06] MEDS ORDERED: ALPRAZolam 0.5mg tablet PO PRN (06:35)
[2021-05-06] MEDS: normal saline 1000ml 1,000 ML IV SCH ×2 (07:43→18:15)
[2021-05-06] MEDS ORDERED: enoxaparin 80mg/0.8ml syringe SUBCUT SCH (08:00)
[2021-05-06] MEDS: aspirin 81mg, enteric-coated 1 TAB TABLET.DR PO SCH (08:45)
[2021-05-06] MEDS: lisinopril 2.5mg tablet PO SCH (08:45)
[2021-05-06] MEDS: spironolactone 50 MG tablet PO SCH ×2 (08:46→20:10)
[2021-05-06] MEDS: atorvastatin 10mg tablet PO SCH (08:46)
[2021-05-06] MEDS: potassium Cl 20 mEq SR tablet PO PRN ×2 (08:46→18:00)
[2021-05-06] MEDS: buPROPion SR 150mg tablet PO SCH ×2 (08:46→20:10)
[2021-05-06] MEDS: pantoprazole 40mg Tablet.DR PO SCH (08:46)
[2021-05-06] MEDS: docusate sod 100mg capsule PO SCH ×2 (08:47→20:10)
[2021-05-06] MEDS: K and/or MAG REPLACEMENT MC SCH ×2 (08:48→20:00)
[2021-05-06] MEDS: insulin Lispro (HumaLOG) vial - multi-dose SQ SCH ×2 (09:39→23:02)
[2021-05-06] MEDS: sotalol 80mg tablet PO SCH ×2 (09:47→09:50)
[2021-05-06 14:16] LABS: APTT 42 SECONDS (22-32)
[2021-05-06] MEDS: heparin 10,000 units/1 ML INJ IV PRN (15:40)
[2021-05-06] MEDS ORDERED: ASPI-1468 PO (16:53)
[2021-05-06 18:00] VITALS: BP 132/68
--- NOTE | 2021-05-06 19:00 | NUR ---
Pt in bed reported not having dinner, tray found outside and given. Heparin drips infusing at 11 ml/hr to the right AC. Pt instructed to notify staff for any signs of bleeding. call light placed within reach, seizure precaution in progress. Side rails padded with pillows. Potassium replacement in progress.
--- NOTE | 2021-05-06 19:37 | NUR ---
Received pt from ER BY 1230. Alert, oriented times 4. Denied pain/discomfort, heparin drip running, no sign of bleeding noted. Oriented to surrounding, call light within reach, safety maintained.
[2021-05-06] MEDS: REMDESIVIR 100 MG in NS 100ml IVPB IV SCH (20:32)
[2021-05-06 22:00] VITALS: BP 112/62
[2021-05-06] MEDS: insulin glargine (Lantus) pen - multi-dose SQ SCH (23:05)
[2021-05-06] MEDS: potassium CL 10mEq/100ml bag 100 ML IV PRN (23:09)
[2021-05-07] MEDS: LORazepam 1 MG tablet PO SCH ×4 (01:07→20:57)
[2021-05-07] MEDS: potassium CL 10mEq/100ml bag 100 ML IV PRN ×2 (01:07→02:51)
[2021-05-07 02:00] VITALS: BP 134/77
[2021-05-07] MEDS: normal saline 1000ml 1,000 ML IV SCH ×3 (02:54→23:10)
--- NOTE | 2021-05-07 05:00 | NUR ---
IV site to the right hand discontinued and new HL placed to the right hand
--- NOTE | 2021-05-07 05:50 | NUR ---
Pt transferred in stable condition to Ortho/ Neuro.
[2021-05-07 07:49] LABS: BASOPHILS % (AUTO) 0.2 % (0-1); EOSINOPHILS # (AUTO) 0.2 X10'3 (0-0.9); EOSINOPHILS % (AUTO) 2.8 % (0-6); HEMATOCRIT 38.4 % (35.0-45.0); HEMOGLOBIN 12.7 g/dl (12.0-16.0); LYMPHOCYTES # (AUTO) 1.6 X10'3 (1.1-4.8); LYMPHOCYTES % (AUTO) 26.8 % (21-51); MEAN CORPUSCULAR HGB CONC 33.1 g/dL (33.0-36.5); MEAN CORPUSCULAR VOLUME 84.5 FL (78-98); MEAN PLATELET VOLUME 10.8 FL (7.4-10.4); MONOCYTES # (AUTO) 0.6 X10'3 (0-0.9); MONOCYTES % (AUTO) 10.7 % (2-12); NEUTROPHILS # (AUTO) 3.5 X10'3 (1.8-7.7); NEUTROPHILS % (AUTO) 59.5 % (42-75); PLATELET COUNT 213 X10'3 (140-440); RED BLOOD COUNT 4.55 X10'6 (4.20-5.60); RED CELL DISTRIBUTION WIDTH 13.9 % (11.5-14.5); WHITE BLOOD COUNT 5.9 X10'3 (4.5-11.0)
[2021-05-07] MEDS: K and/or MAG REPLACEMENT MC SCH ×2 (08:00→20:00)
[2021-05-07] MEDS: pantoprazole 40mg Tablet.DR PO SCH (08:23)
[2021-05-07] MEDS: aspirin 81mg, enteric-coated 1 TAB TABLET.DR PO SCH (08:23)
[2021-05-07] MEDS: docusate sod 100mg capsule PO SCH ×2 (08:23→20:57)
[2021-05-07] MEDS: buPROPion SR 150mg tablet PO SCH ×2 (08:23→20:57)
[2021-05-07] MEDS: lisinopril 2.5mg tablet PO SCH (08:27)
[2021-05-07] MEDS: atorvastatin 10mg tablet PO SCH (08:27)
[2021-05-07] MEDS: insulin Lispro (HumaLOG) vial - multi-dose SQ SCH ×2 (08:29→19:21)
[2021-05-07 08:34] LABS: ALANINE AMINOTRANSFERASE 20 U/L (12-78); ALBUMIN 2.2 G/DL (3.4-5.0); ALBUMIN/GLOBULIN RATIO 0.6 (1.1-1.5); ALKALINE PHOSPHATASE 59 IU/L (46-116); ANION GAP 10 (8-16); ASPARTATE AMINO TRANSFERASE 17 U/L (10-37); BLOOD UREA NITROGEN 21 MG/DL (7-18); BUN/CREATININE RATIO 34.4 (6.6-38.0); CALCIUM 7.9 MG/DL (8.5-10.1); CHLORIDE 107 MMOL/L (99-107); CREATININE 0.61 MG/DL (0.40-0.90); GLUCOSE 135 MG/DL (70-104); POTASSIUM 4.7 MMOL/L (3.5-5.1); SODIUM 139 MMOL/L (135-145); TOTAL CARBON DIOXIDE 22.3 MMOL/L (24-32); TOTAL PROTEIN 5.7 G/DL (6.4-8.2); eGFR > 90 ML/MIN
[2021-05-07 08:52] LABS: BILIRUBIN,TOTAL 0.1 MG/DL (0.1-1.0)
[2021-05-07 10:00] VITALS: BP 139/72
[2021-05-07 11:09] LABS: D-DIMER 0.37 MG/L FEU (0-0.50)
[2021-05-07] MEDS: heparin 25,000 UNIT/250ml bag 250 ML IV SCH (11:15)
[2021-05-07 11:36] LABS: LARGE PLATELETS FEW; PLATELET ESTIMATE NORMAL
--- NOTE | 2021-05-07 11:50 | NUR ---
DM Consult: Noted pt A1c of 10.3. sports management intern called pt to provide DM diet education however pt seemed disoriented and could not stay on topic to receive DM diet education. COLLEEN d/w RN pt status; RN stated pt was sleepy most of the day likely due to meth withdrawal. Will defer DM education until pt more appropriate. Addendum: 05/07/21 at 1151 by Mario Dickinson - Lubrication Supervisor COLLEEN Amended: Links added. Addendum: 05/07/21 at [address] I have reviewed assessment by event planning intern
[2021-05-07 18:00] VITALS: BP 155/76
[2021-05-07] MEDS: sotalol 80mg tablet PO SCH (20:56)
[2021-05-07] MEDS: spironolactone 50 MG tablet PO SCH (20:57)
[2021-05-07] MEDS: REMDESIVIR 100 MG in NS 100ml IVPB IV SCH (21:05)
[2021-05-07] MEDS: insulin glargine (Lantus) pen - multi-dose SQ SCH (21:56)
[2021-05-07 22:00] VITALS: BP 140/67
[2021-05-08 00:58] LABS: D-DIMER 0.49 MG/L FEU (0-0.50)
[2021-05-08] MEDS: heparin 10,000 units/1 ML INJ IV PRN (01:08)
[2021-05-08 02:00] VITALS: BP 154/62
[2021-05-08] MEDS: LORazepam 1 MG tablet PO SCH ×2 (02:09→08:00)
[2021-05-08] MEDS: normal saline 1000ml 1,000 ML IV SCH (04:51)
[2021-05-08] MEDS: heparin 25,000 UNIT/250ml bag 250 ML IV SCH (04:53)
[2021-05-08 06:00] VITALS: BP 139/64
--- NOTE | 2021-05-08 06:06 | NUR ---
Problems reprioritized. Patient report given, questions answered & plan of care reviewed with Shlomo EUBANKS.
[2021-05-08] MEDS: pantoprazole 40mg Tablet.DR PO SCH (07:59)
[2021-05-08] MEDS: docusate sod 100mg capsule PO SCH (08:00)
[2021-05-08] MEDS: aspirin 81mg, enteric-coated 1 TAB TABLET.DR PO SCH (08:00)
[2021-05-08] MEDS: spironolactone 50 MG tablet PO SCH (08:00)
[2021-05-08] MEDS: atorvastatin 10mg tablet PO SCH (08:00)
[2021-05-08] MEDS: lisinopril 2.5mg tablet PO SCH (08:01)
[2021-05-08] MEDS: buPROPion SR 150mg tablet PO SCH (08:01)
[2021-05-08] MEDS: sotalol 80mg tablet PO SCH (08:01)
[2021-05-08 08:18] LABS: BASOPHILS % (AUTO) 0.3 % (0-1); EOSINOPHILS # (AUTO) 0.2 X10'3 (0-0.9); EOSINOPHILS % (AUTO) 3.1 % (0-6); HEMATOCRIT 38.4 % (35.0-45.0); HEMOGLOBIN 12.6 g/dl (12.0-16.0); LYMPHOCYTES # (AUTO) 1.5 X10'3 (1.1-4.8); LYMPHOCYTES % (AUTO) 22.8 % (21-51); MEAN CORPUSCULAR HEMOGLOBIN 27.6 PG (27.0-31.0); MEAN CORPUSCULAR HGB CONC 32.8 g/dL (33.0-36.5); MEAN PLATELET VOLUME 10.5 FL (7.4-10.4); MONOCYTES # (AUTO) 0.5 X10'3 (0-0.9); MONOCYTES % (AUTO) 8.1 % (2-12); NEUTROPHILS # (AUTO) 4.4 X10'3 (1.8-7.7); NEUTROPHILS % (AUTO) 65.7 % (42-75); PLATELET COUNT 250 X10'3 (140-440); RED BLOOD COUNT 4.57 X10'6 (4.20-5.60); RED CELL DISTRIBUTION WIDTH 13.6 % (11.5-14.5); WHITE BLOOD COUNT 6.7 X10'3 (4.5-11.0)
[2021-05-08 08:44] LABS: ALANINE AMINOTRANSFERASE 19 U/L (12-78); ALBUMIN 2.2 G/DL (3.4-5.0); ALBUMIN/GLOBULIN RATIO 0.6 (1.1-1.5); ALKALINE PHOSPHATASE 60 IU/L (46-116); ANION GAP 10 (8-16); ASPARTATE AMINO TRANSFERASE 19 U/L (10-37); BILIRUBIN,TOTAL 0.1 MG/DL (0.1-1.0); BLOOD UREA NITROGEN 17 MG/DL (7-18); BUN/CREATININE RATIO 23.3 (6.6-38.0); C-REACTIVE PROTEIN 5.18 MG/DL (0.0-0.5); CALCIUM 7.6 MG/DL (8.5-10.1); CHLORIDE 109 MMOL/L (99-107); CREATININE 0.73 MG/DL (0.40-0.90); GLUCOSE 143 MG/DL (70-104); POTASSIUM 4.1 MMOL/L (3.5-5.1); SODIUM 141 MMOL/L (135-145); TOTAL CARBON DIOXIDE 22.2 MMOL/L (24-32); TOTAL PROTEIN 5.8 G/DL (6.4-8.2); eGFR 80 ML/MIN
[2021-05-08] MEDS: insulin Lispro (HumaLOG) vial - multi-dose SQ SCH (08:44)
[2021-05-08 10:00] VITALS: BP 157/75
[2021-05-08] MEDS ORDERED: PRED20TA PO (11:03)
--- NOTE | 2021-05-08 12:02 | NUR ---
MRSA swap was completed. Addendum: 05/08/21 at 1202 by Shlomo Berry RN Amended: Links added.
--- NOTE | 2021-05-08 13:45 | NUR ---
Patient discharge home alert and orient, discharge instructions was discussed.
== END 2021-05-08 14:35 | disposition home or self-care (01) | DRG 177 ==
LOC: ER 16:57 → ED HOLD 21:13 → EDBEDREQ 05-06 10:13 → PCU 3S 05-06 12:06 → ORTHO 4S 05-07 05:57
PROVIDERS: ADMIT Family Medicine; ATTEND Family Medicine
PROC: XW033E5 Introduction of Remdesivir Anti-infective into Peripheral Vein, Percutaneous Approach, New Technology Group 5 (ICD-10-PCS; principal; 2021-05-05)
PROC: B32T1ZZ Computerized Tomography (CT Scan) of Left Pulmonary Artery using Low Osmolar Contrast (ICD-10-PCS; 2021-05-05)
PROC: B3201ZZ Computerized Tomography (CT Scan) of Thoracic Aorta using Low Osmolar Contrast (ICD-10-PCS; 2021-05-05)
PROC: B32S1ZZ Computerized Tomography (CT Scan) of Right Pulmonary Artery using Low Osmolar Contrast (ICD-10-PCS; 2021-05-05)
DX: U07.1 COVID-19 (principal); I21.A1 Myocardial infarction type 2; J96.01 Acute respiratory failure with hypoxia; N17.0 Acute kidney failure with tubular necrosis; J12.82 Pneumonia due to coronavirus disease 2019; E87.1 Hypo-osmolality and hyponatremia; I50.32 Chronic diastolic (congestive) heart failure; F15.129 Other stimulant abuse with intoxication, unspecified; E83.42 Hypomagnesemia; G47.33 Obstructive sleep apnea (adult) (pediatric); E78.5 Hyperlipidemia, unspecified; E11.51 Type 2 diabetes mellitus with diabetic peripheral angiopathy without gangrene; E78.00 Pure hypercholesterolemia, unspecified; E87.6 Hypokalemia; F31.9 Bipolar disorder, unspecified; G40.909 Epilepsy, unspecified, not intractable, without status epilepticus; G89.4 Chronic pain syndrome; I11.0 Hypertensive heart disease with heart failure; I25.10 Atherosclerotic heart disease of native coronary artery without angina pectoris; I48.91 Unspecified atrial fibrillation; B19.20 Unspecified viral hepatitis C without hepatic coma; F41.9 Anxiety disorder, unspecified; Z86.72 Personal history of thrombophlebitis; Z79.82 Long term (current) use of aspirin; Z79.899 Other long term (current) drug therapy; Z71.51 Drug abuse counseling and surveillance of drug abuser
CPT/HCPCS: 36415; 71045; 71275; 80053; 80061; 80156; 80305; 80320; 81001; 82550; 82948; 83036; 83690; 83735; 83880; 84100; 84132; 84145; 84443; 84484; 85008; 85025; 85379; 85610; 85730; 86140; 87081; 87635; 93005; 96365; 96375; 99291; C9803; G0378; J1644; J1815; J3480; J3490; J7030; Q9967

== ENCOUNTER 2021-08-02 11:14 | Emergency (ER) | payer MEDICARE, MEDICAID ==
[~2021-08-02] VITALS: Ht 160 cm; Wt 77.7 kg
[~2021-08-02 11:14] MED LIST changes: -ALD50T PO; +APIX5TAB3 PO; -ASPI-612 PO; -ATOR40TA7 PO; +ATOR40TA72 PO; +BUPR-317 PO; -BUPR150T22 PO; +BUPR1PAT TOP; +CARCD120C PO; +CEPH500C81 PO; +CHOL100017 PO; -CHOL2000 PO; -DULA0.75 SQ; +DULA1.5P SQ; +INSU100I31 SQ; +INSU100I45 SQ; -LANTUS SQ; -LISI2.5T49 PO; -NORCO10T PO; -OXCA300T39 PO; +OXYC1TAB17 PO
[2021-08-02 11:36] VITALS: BP 166/72
[2021-08-02] MEDS ORDERED: LIDOcaine 1% W/epiNEPHrine 1:200,000 10ml vial IJ ONE (14:20)
[2021-08-02] MEDS ORDERED: SULF1TAB49 PO (15:41)
[2021-08-02] MEDS ORDERED: CEPH500C81 PO (15:41)
[2021-08-02] MEDS ORDERED: LIDOcaine 1% W/epiNEPHrine 1:100,000 20ml vial SQ ONE (15:45)
--- NOTE | 2021-08-05 16:10 | NUR ---
PT CALLED REGARDING VISIT ON 08/02/21. MESSAGE LEFT TO RETURN CALL
== END 2021-08-02 16:15 | disposition home or self-care (01) ==
LOC: ER 11:15
DX: L02.31 Cutaneous abscess of buttock (principal); I11.9 Hypertensive heart disease without heart failure; E11.9 Type 2 diabetes mellitus without complications; G89.29 Other chronic pain; F31.9 Bipolar disorder, unspecified; Z79.899 Other long term (current) drug therapy
CPT/HCPCS: 10060; 87070; 87077; 87186; 99284

== ENCOUNTER 2022-04-25 17:22 | Emergency (ER) | payer MEDICARE, MEDICAID ==
[~2022-04-25] VITALS: Ht 157.5 cm; Wt 72.7 kg
[2022-04-25 18:29] VITALS: BP 152/89
[2022-04-25] MEDS ORDERED: acetaminophen 325mg tablet PO ONE (20:10)
--- NOTE | 2022-04-25 20:17 | NUR ---
po med given
== END 2022-04-25 20:18 | disposition home or self-care (01) ==
LOC: ER 17:24
DX: R07.81 Pleurodynia (principal); M25.551 Pain in right hip; G89.29 Other chronic pain; I25.10 Atherosclerotic heart disease of native coronary artery without angina pectoris; E78.00 Pure hypercholesterolemia, unspecified; I10 Essential (primary) hypertension; G47.30 Sleep apnea, unspecified; F41.9 Anxiety disorder, unspecified; F31.9 Bipolar disorder, unspecified; Z86.19 Personal history of other infectious and parasitic diseases; Z79.01 Long term (current) use of anticoagulants; Z79.4 Long term (current) use of insulin; Z79.899 Other long term (current) drug therapy
CPT/HCPCS: 71100; 99284

== ENCOUNTER 2022-07-04 11:18 | Emergency (ER) | payer MEDICARE, MEDICAID ==
[~2022-07-04] VITALS: Ht 160 cm; Wt 69.2 kg
[2022-07-04 12:03] LABS: BASOPHILS % (AUTO) 0.6 % (0-1); EOSINOPHILS # (AUTO) 0.1 X10'3 (0-0.9); EOSINOPHILS % (AUTO) 1.7 % (0-6); HEMATOCRIT 41.3 % (35.0-45.0); HEMOGLOBIN 13.8 g/dl (12.0-16.0); LYMPHOCYTES # (AUTO) 1.1 X10'3 (1.1-4.8); LYMPHOCYTES % (AUTO) 16.6 % (21-51); MEAN CORPUSCULAR HEMOGLOBIN 27.3 PG (27.0-31.0); MEAN CORPUSCULAR HGB CONC 33.4 g/dL (33.0-36.5); MEAN CORPUSCULAR VOLUME 81.8 FL (78-98); MEAN PLATELET VOLUME 9.6 FL (7.4-10.4); MONOCYTES # (AUTO) 0.5 X10'3 (0-0.9); MONOCYTES % (AUTO) 7.1 % (2-12); NEUTROPHILS # (AUTO) 4.7 X10'3 (1.8-7.7); PLATELET COUNT 246 X10'3 (140-440); RED BLOOD COUNT 5.04 X10'6 (4.20-5.60); RED CELL DISTRIBUTION WIDTH 13.3 % (11.5-14.5); WHITE BLOOD COUNT 6.4 X10'3 (4.5-11.0)
[2022-07-04 12:16] LABS: APTT 29 SECONDS (22-32)
[2022-07-04 12:20] LABS: ALANINE AMINOTRANSFERASE 28 U/L (12-78); ALBUMIN 3.5 G/DL (3.4-5.0); ALBUMIN/GLOBULIN RATIO 0.8 (1.1-1.5); ALKALINE PHOSPHATASE 111 IU/L (46-116); ANION GAP 9 (8-16); ASPARTATE AMINO TRANSFERASE 18 U/L (10-37); BILIRUBIN,TOTAL 0.5 MG/DL (0.1-1.0); BLOOD UREA NITROGEN 13 MG/DL (7-18); BUN/CREATININE RATIO 11.9 (10.0-20.0); CHLORIDE 97 MMOL/L (99-107); CREATININE 1.09 MG/DL (0.40-0.90); POTASSIUM 3.5 MMOL/L (3.5-5.1); SODIUM 135 MMOL/L (135-145); TOTAL CARBON DIOXIDE 29.3 MMOL/L (24-32); eGFR 50 ML/MIN
[2022-07-04 12:25] LABS: GLUCOSE 496 MG/DL (70-104)
[2022-07-04] MEDS ORDERED: ringers solution, lacted 1,000 ML IV ONE (12:25)
[2022-07-04] MEDS ORDERED: insulin regular, human 10 units/0.1 ml syringe IV ONE (12:25)
[2022-07-04 12:54] LABS: CLARITY,URINE CLEAR (Clear); COLOR,URINE STRAW (Yellow); GLUCOSE, URINE >=1000 mg/dl (Neg); KETONES,URINE NEGATIVE (Neg); LEUKOCYTE ESTERASE ,URINE NEGATIVE (Neg); NITRITES, URINE NEGATIVE (Neg); OCCULT BLOOD,URINE TRACE-INTACT (Neg); PROTEIN,URINE 30 mg/dl (Neg); UROBILINOGEN,URINE 0.2 E.U/dL (0.2-1.0)
[2022-07-04 12:55] LABS: UA COLLECTION TYPE FOLEY CATH
[2022-07-04 13:00] LABS: BACTERIA,URINE NONE SEEN /HPF (Neg); MUCUS STRANDS FEW /LPF (Neg); RBC,URINE 0-2 /HPF (0-2); SQUAMOUS EPITHELIAL CELL,UR FEW /LPF (FEW); WBC,URINE NONE SEEN /HPF (0-4)
[2022-07-04 15:07] VITALS: BP 173/89
== END 2022-07-04 15:13 | disposition home or self-care (01) ==
LOC: ER 11:19
DX: R44.0 Auditory hallucinations (principal); R44.1 Visual hallucinations; F15.10 Other stimulant abuse, uncomplicated; E11.65 Type 2 diabetes mellitus with hyperglycemia; I11.9 Hypertensive heart disease without heart failure; F41.9 Anxiety disorder, unspecified; Z79.1 Long term (current) use of non-steroidal anti-inflammatories (NSAID); Z79.2 Long term (current) use of antibiotics; Z79.899 Other long term (current) drug therapy
CPT/HCPCS: 36415; 70450; 71045; 80053; 81001; 82948; 85025; 85610; 85730; 93005; 96361; 96374; 99285; J1815; J7030; J7120

== ENCOUNTER 2022-11-02 11:13 | Emergency (ER) | payer MEDICARE, MEDICAID ==
[~2022-11-02] VITALS: Ht 157.5 cm; Wt 70.2 kg
[~2022-11-02 11:13] MED LIST changes: -INSU100I45 SQ; +INSU100I61 SQ
[2022-11-02 12:34] VITALS: BP 147/91; PULSE 88; RESP 18; TEMP 97.8; O2SAT 98
== END 2022-11-02 14:36 | disposition home or self-care (01) ==
LOC: ER 11:13
DX: E11.65 Type 2 diabetes mellitus with hyperglycemia (principal); I11.9 Hypertensive heart disease without heart failure; E78.00 Pure hypercholesterolemia, unspecified; I10 Essential (primary) hypertension; F31.9 Bipolar disorder, unspecified; Z79.899 Other long term (current) drug therapy; G89.29 Other chronic pain; Z79.1 Long term (current) use of non-steroidal anti-inflammatories (NSAID); Z79.2 Long term (current) use of antibiotics
CPT/HCPCS: 82948; 99282

== ENCOUNTER 2023-02-01 18:57 | Emergency (ER) | payer MEDICARE, MEDICAID ==
[~2023-02-01] VITALS: Ht 157.5 cm; Wt 71.1 kg
[2023-02-01] MEDS ORDERED: oxyCODONE/APAP 5-325mg tablet PO ONE (23:30)
[2023-02-01] MEDS ORDERED: OXYC-145 PO (23:34)
[2023-02-02 00:02] VITALS: BP 148/75; PULSE 88; RESP 16; TEMP 98; O2SAT 97
== END 2023-02-02 00:04 | disposition home or self-care (01) ==
LOC: ER 18:58
DX: M25.551 Pain in right hip (principal); I11.0 Hypertensive heart disease with heart failure; F31.9 Bipolar disorder, unspecified; Z79.899 Other long term (current) drug therapy; Z79.1 Long term (current) use of non-steroidal anti-inflammatories (NSAID); Z79.2 Long term (current) use of antibiotics
CPT/HCPCS: 73502; 99283